=== PATIENT | male | born 1965 | race Caucasian/White ===

== ENCOUNTER 2016-10-04 16:30 | Emergency (ER) | payer OTHER ==
[2016-10-04 16:46] VITALS: BP 148/83
--- NOTE | 2016-10-04 17:07 | ED Physician Documentation ---
PD HPI HEENT - Stated complaint Stated Complaint: FACIAL SWELLING - Chief complaint Chief Complaint: Heent - History obtained from History obtained from: Patient - History of Present Illness Timing - onset: Other (He has a long-standing cracked tooth on the left jaw and over the weekend has had increased pain with some facial swelling and potentially a subjective fever.) Review of Systems Constitutional: reports: Fever Eyes: denies: Loss of vision, Decreased vision Ears: denies: Loss of hearing, Ear pain Nose: denies: Rhinorrhea / runny nose, Congestion PD PAST MEDICAL HISTORY - Past Medical History Past Medical History: No - Present Medications Home Medications: Ambulatory Orders Medication Instructions Recorded Confirmed HYDROcod/ACETAM 5/325 [[place] 5/325] 1 - 2 ea PO Q6H PRN #10 tablet 10/04/16 Penicillin V Potassium 500 mg PO QID #40 tab 10/04/16 - Allergies Allergies/Adverse Reactions: Allergies Allergy/AdvReac Type Severity Reaction Status Date / Time No Known Drug Allergies Allergy Verified 10/04/16 16:48 - Social History Does the pt smoke?: Yes Smoking Status: Current every day smoker PD ED PE NORMAL - Vitals Vital signs reviewed: Yes - General General: Alert and oriented X 3, No acute distress - HEENT HEENT: Other (Bad dentition, edentulous on the maxilla. There is a tender deep cavity over a left mandibular premolar with lateral gingival swelling and potential deep abscess and mild facial swelling.) - Neck Neck: Supple, no meningeal sign, No bony TTP - Neuro Neuro: Alert and oriented X 3, Normal speech - Psych Psych: Normal mood, Normal affect Results - Vitals Vitals: Vital Signs - 24 hr 10/04/16 16:44 Temperature 37.3 C Heart Rate 93 Respiratory 18 Rate Blood Pressure 148/83 H O2 Saturation 96 Oxygen O2 Source Room air Procedures - Abscess I&D (location) dental Preparation: Lidocaine 1% (inferial alveolar block with good anesthesia) Incision: Incised with scalpel, Purulent drainage, Loculations broken Other: Pt tolerated well, Dressing applied Departure - Departure Disposition: 01 Home, Self Care Clinical Impression: Dental abscess Condition: Good Record reviewed to determine appropriate education?: Yes Instructions: ED Dental Abscess Facial Cellulitis Prescriptions: HYDROcod/ACETAM 5/325 [[place] 5/325] 1 - 2 ea PO Q6H PRN #10 tablet PRN Reason: Pain Penicillin V Potassium 500 mg PO QID #40 tab Comments: Your blood pressure was elevated today on check in to the emergency department. This does not mean that you have hypertension, it is a common phenomenon to check into the emergency department and have elevated blood pressure. I recommend that you see your primary care physician within the week to have it rechecked when you're feeling better. It is very important that you follow up with a dentist. When it comes to dental problems like yours the emergency department can only offer you a short-term solution to your long-term problem. A couple of options for low-cost dental care include: [facility] in [place] call [phone] for an appointment Or [facility] in [place], call [phone] for an appointment Do not drink or drive while on narcotic pain medicine. Note that many narcotic pain relievers also contain tylenol/acetaminophen. Please ensure that your total dose of acetaminophen from all sources does not exceed 3 grams (3000mg) per day. You may constipated on this medication, take a stool softener such as "Colace" twice a day while you are on it. Also recommend a hyhs-hyb-egvikng laxative such as senna or MiraLAX any day that you do not have a bowel movement. If you received narcotic pain medication in the emergency department, do not drive or operate machinery for the next 24 hours.
== END 2016-10-04 17:18 | disposition home or self-care (01) ==
LOC: ED 16:30
DX: K04.7 Periapical abscess without sinus (principal); R03.0 Elevated blood-pressure reading, without diagnosis of hypertension; F17.200 Nicotine dependence, unspecified, uncomplicated
CPT/HCPCS: 41800; 99283